=== PATIENT | male | born 1965 | race Caucasian/White ===

== ENCOUNTER 2020-10-27 09:27 | Day surgery (SDC) | payer MEDICAID ==
[2020-10-22 15:34] LABS: BASOPHILS # (AUTO) 0.1 X10'3 (0-0.2); BASOPHILS % (AUTO) 0.8 % (0-1); EOSINOPHILS # (AUTO) 0.1 X10'3 (0-0.9); EOSINOPHILS % (AUTO) 1.7 % (0-6); HEMATOCRIT 39.2 % (42.0-52.0); HEMOGLOBIN 13.2 g/dl (14.0-17.9); LYMPHOCYTES # (AUTO) 1.8 X10'3 (1.1-4.8); LYMPHOCYTES % (AUTO) 22.7 % (21-51); MEAN CORPUSCULAR HEMOGLOBIN 30.3 PG (27.0-31.0); MEAN CORPUSCULAR HGB CONC 33.8 g/dL (33.0-36.5); MEAN CORPUSCULAR VOLUME 89.7 FL (78-98); MEAN PLATELET VOLUME 9.9 FL (7.4-10.4); MONOCYTES # (AUTO) 0.7 X10'3 (0-0.9); MONOCYTES % (AUTO) 8.8 % (2-12); NEUTROPHILS # (AUTO) 5.4 X10'3 (1.8-7.7); PLATELET COUNT 191 X10'3 (140-440); RED BLOOD COUNT 4.37 X10'6 (4.70-6.10); WHITE BLOOD COUNT 8.1 X10'3 (4.5-11.0)
[2020-10-22 15:59] LABS: ALANINE AMINOTRANSFERASE 46 U/L (12-78); ALBUMIN 3.4 G/DL (3.4-5.0); ALBUMIN/GLOBULIN RATIO 0.9 (1.1-1.5); ALKALINE PHOSPHATASE 113 IU/L (46-116); ANION GAP 11 (8-16); ASPARTATE AMINO TRANSFERASE 23 U/L (10-37); BILIRUBIN,TOTAL 0.4 MG/DL (0.1-1.0); BLOOD UREA NITROGEN 21 MG/DL (7-18); BUN/CREATININE RATIO 16.2 (5.4-32.0); CALCIUM 8.8 MG/DL (8.5-10.1); CHLORIDE 104 MMOL/L (99-107); GLUCOSE 162 MG/DL (70-104); POTASSIUM 4.1 MMOL/L (3.5-5.1); SODIUM 139 MMOL/L (135-145); TOTAL CARBON DIOXIDE 24.5 MMOL/L (24-32); TOTAL PROTEIN 7.2 G/DL (6.4-8.2); eGFR 57 ML/MIN
[~2020-10-27] VITALS: Ht 185.4 cm; Wt 133.5 kg
[2020-10-27] VITALS (11 sets, daily range): BP systolic 122–154; BP diastolic 66–93
[2020-10-27] MEDS ORDERED: methylPREDNISolone sod succ 125mg/2ml vial IV ONE (09:50)
[2020-10-27] MEDS ORDERED: diphenhydrAMINE 25mg capsule PO PRN (09:50)
[2020-10-27] MEDS ORDERED: normal saline 1,000 ML IV SCH (09:50)
[2020-10-27] MEDS ORDERED: LORazepam 0.5 MG tablet PO PRN (09:50)
[2020-10-27] MEDS ORDERED: nitroGLYCERIN 0.4mg SUBLingual tab SL PRN ×2 (09:50→11:55)
[2020-10-27] MEDS ORDERED: METF-438 PO (09:54)
[2020-10-27] MEDS ORDERED: PIOG45TA65 PO (09:54)
[2020-10-27] MEDS ORDERED: LISI-600 PO (09:54)
[2020-10-27] MEDS ORDERED: LIRA0.6P (09:54)
[2020-10-27] MEDS ORDERED: PRAV80TA3 PO (09:54)
[2020-10-27] MEDS ORDERED: HYDR25TA4 PO (09:54)
[2020-10-27] MEDS ORDERED: AMLO5TAB16 PO (09:54)
[2020-10-27] MEDS ORDERED: CETI10TA14 PO (09:54)
[2020-10-27] MEDS ORDERED: KEN0.1O TOP (09:54)
[2020-10-27] MEDS ORDERED: PREG300C19 PO (09:54)
[2020-10-27] MEDS ORDERED: GLYB5TAB7 PO (09:54)
[2020-10-27] MEDS ORDERED: PRED20TA PO (09:54)
[2020-10-27] MEDS ORDERED: OMEG1CAP46 PO (09:58)
[2020-10-27] MEDS ORDERED: KORE1000 (09:58)
[2020-10-27] MEDS ORDERED: ASPI-611 PO (09:58)
[2020-10-27] MEDS ORDERED: MULT-1085 PO (09:58)
[2020-10-27] MEDS ORDERED: THIO200T PO (09:58)
[2020-10-27 10:10] LABS: PARTIAL THROMBOPLASTIN TIME 27 SECONDS (22-32)
[2020-10-27] MEDS ORDERED: midazolam 2 mg/2 ml injection ONE (10:19)
[2020-10-27] MEDS ORDERED: iohexol 350 MG/ML 50ML vial IV ONE (10:19)
[2020-10-27] MEDS ORDERED: LIDOcaine 1% (10mg/ml)w/preservative injection 20ml MDV ONE (10:19)
[2020-10-27] MEDS ORDERED: fentaNYL/PF 50MCG/1 ML 2ML syringe ONE (10:19)
[2020-10-27] MEDS ORDERED: iohexol 350MG/ML 100ml bottle IV ONE (10:19)
[2020-10-27] MEDS ORDERED: FLU VACC QS2020-21(6MOS UP)/PF 60 MCG/0.5 ML SYRINGE IMVAC ONE (10:25)
[2020-10-27] MEDS ORDERED: OXAZEpam 15mg capsule PO PRN (11:55)
[2020-10-27] MEDS ORDERED: ondansetron/PF 4mg/2ml inj IV PRN (11:55)
[2020-10-27] MEDS ORDERED: HYDROcodone/acetaminophen 5mg/325mg tablet PO PRN (11:55)
[2020-10-27] MEDS ORDERED: proCHLORperazine 10 MG/2 ml inj IV PRN (11:55)
[2020-10-27] MEDS ORDERED: HYDROcodone/acetaminophen 10/325mg tab PO PRN (11:55)
== END 2020-10-27 17:00 | disposition home or self-care (01) ==
LOC: SSTAY O 09:27
PROVIDERS: ATTEND Internal Medicine Cardiovascular Disease
DX: R94.39 Abnormal result of other cardiovascular function study (principal); I25.10 Atherosclerotic heart disease of native coronary artery without angina pectoris; E11.40 Type 2 diabetes mellitus with diabetic neuropathy, unspecified; I10 Essential (primary) hypertension; J44.9 Chronic obstructive pulmonary disease, unspecified; F32.9 Major depressive disorder, single episode, unspecified; E66.9 Obesity, unspecified; Z68.38 Body mass index [BMI] 38.0-38.9, adult; Z79.01 Long term (current) use of anticoagulants; Z79.899 Other long term (current) drug therapy; Z89.432 Acquired absence of left foot; Z88.8 Allergy status to other drugs, medicaments and biological substances; Z87.891 Personal history of nicotine dependence
CPT/HCPCS: 36415; 71046; 80053; 82948; 85025; 85610; 85730; 93005; 93458; 99152; 99153; C1760; C1769; J1644; J2001; J2250; J2930; J3010; J7030; Q0163; Q9967; A4620; A6258

== ENCOUNTER 2021-05-05 05:28 | Day surgery (SDC) | payer MEDICARE, MEDICAID ==
[2021-04-27 15:43] LABS: BASOPHILS % (AUTO) 0.6 % (0-1); EOSINOPHILS # (AUTO) 0.2 X10'3 (0-0.9); LYMPHOCYTES # (AUTO) 1.9 X10'3 (1.1-4.8); LYMPHOCYTES % (AUTO) 23.8 % (21-51); MEAN CORPUSCULAR HGB CONC 33.6 g/dL (33.0-36.5); MEAN CORPUSCULAR VOLUME 89.2 FL (78-98); MEAN PLATELET VOLUME 10.2 FL (7.4-10.4); MONOCYTES # (AUTO) 0.7 X10'3 (0-0.9); MONOCYTES % (AUTO) 8.9 % (2-12); NEUTROPHILS # (AUTO) 5.1 X10'3 (1.8-7.7); NEUTROPHILS % (AUTO) 63.7 % (42-75); PRE OP HEMATOCRIT 37.6 % (42.0-52.0); PRE OP HEMOGLOBIN 12.6 g/dL (14.0-17.9); PRE OP PLATELET COUNT 193 X10'3 (140-440); RED BLOOD COUNT 4.22 X10'6 (4.70-6.10); RED CELL DISTRIBUTION WIDTH 15.8 % (11.5-14.5)
[2021-04-27 15:53] LABS: BLOOD UREA NITROGEN 20 MG/DL (7-18); BUN/CREATININE RATIO 14.5 (5.4-32.0); CALCIUM 9.2 MG/DL (8.5-10.1); CHLORIDE 104 MMOL/L (99-107); CREATININE 1.38 MG/DL (0.60-1.10); PRE OP ANION GAP 9 (8-16); PRE OP GLUCOSE 175 MG/DL (70-104); PRE OP SODIUM 139 MMOL/L (135-145); TOTAL CARBON DIOXIDE 25.8 MMOL/L (24-32); eGFR 53 ML/MIN
[2021-04-27 15:54] LABS: ALBUMIN 3.5 G/DL (3.4-5.0); ALBUMIN/GLOBULIN RATIO 0.9 (1.1-1.5); ALKALINE PHOSPHATASE 97 IU/L (46-116); PRE OP ALT 59 U/L (30-65); PRE OP AST 39 U/L (10-37); PRE OP BILIRUB, TOTAL 0.4 MG/DL (0.0-1.0); TOTAL PROTEIN 7.2 G/DL (6.4-8.2)
[~2021-05-05] VITALS: Ht 185.4 cm; Wt 136.5 kg
[2021-05-05] VITALS (10 sets, daily range): BP systolic 144–161; BP diastolic 81–97
[~2021-05-05 05:28] MED LIST: ACET-812 PO; ALPHA LIPOIC ACID; AMLO5TAB16 PO; ASPI-611 PO; CETI10TA14 PO; GLYB5TAB7 PO; HYDR25TA4 PO; LIRA0.6P SQ; LISI20TA28 PO; METF-438 PO; MULT-1085 PO; OMEG1CAP46 PO; PIOG45TA65 PO; PRAV80TA3 PO; PREG300C19 PO; THIO200T PO; VITAMIN C; ringers solution, lacted 1,000 ML IV SCH
[2021-05-05] MEDS ORDERED: vancomycin 1,500 MG in NS 300ml IV soln IV ONE (05:30)
[2021-05-05] MEDS ORDERED: ceFAZolin inj. 3,000 MG in normal saline 100ml IV soln 100 ML IV ONE (05:30)
[2021-05-05] MEDS ORDERED: famotidine 20mg tablet PO ONE (05:30)
[2021-05-05] MEDS ORDERED: BUPIVAcaine/PF 2.5 mg/ml (0.25%) 30ml vial ONE ×3 (07:01→08:39)
[2021-05-05] MEDS ORDERED: methylPREDNISolone sod succ 125mg/2ml vial ONE ×3 (07:01→08:39)
[2021-05-05] MEDS ORDERED: proCHLORperazine 10 MG/2 ml inj IV PRN (07:15)
[2021-05-05] MEDS ORDERED: meperidine/PF 25mg/ml syringe IV PRN ×3 (07:15)
[2021-05-05] MEDS ORDERED: ringers solution, lacted 1,000 ML IV SCH (07:15)
[2021-05-05] MEDS ORDERED: ondansetron/PF 4mg/2ml inj IV PRN (07:15)
[2021-05-05] MEDS ORDERED: morphine 4 MG/ML inj SYRINge IV PRN (07:15)
[2021-05-05] MEDS ORDERED: hydrALAZINE 20mg/ml inj. IV PRN (07:15)
[2021-05-05] MEDS ORDERED: morphine 2 MG/ML inj. syringe IV PRN (07:15)
[2021-05-05] MEDS ORDERED: labetalol 20mg/4ml (5mg/ml) syringe IV PRN (07:15)
[2021-05-05] MEDS ORDERED: acetaminophen 1,000mg/100ml IV 100 ML IV PRN (07:15)
[2021-05-05] MEDS ORDERED: sevoflurane 250ml liquid IH ONE (07:15)
[2021-05-05] MEDS ORDERED: fentaNYL/PF 50MCG/1 ML 2ML syringe ONE (07:23)
[2021-05-05] MEDS ORDERED: midazolam 1 mg/ML 2ml injection ONE (07:33)
[2021-05-05] MEDS ORDERED: propofol inj 20 ML IV ONE ×2 (07:34)
[2021-05-05] MEDS ORDERED: ondansetron/PF 4mg/2ml inj ONE (07:34)
[2021-05-05] MEDS ORDERED: LIDOcaine 2% (20mg/ml) 5ml vial ONE (07:34)
[2021-05-05] MEDS ORDERED: dexamethasone sod phosphate 4mg/ml inj. ONE (07:35)
[2021-05-05] MEDS ORDERED: 0.9 % SODIUM CHLORIDE 10 ML VIAL ONE (07:55)
[2021-05-05] MEDS ORDERED: ePHEDrine 50MG/ML INJ. ONE (07:55)
[2021-05-05] MEDS ORDERED: morphine 4 MG/ML inj SYRINge ONE (08:48)
[2021-05-05] MEDS ORDERED: ketorolac trometh. 30mg/ml inj. ONE (08:49)
--- NOTE | 2021-05-05 09:00 | NUR ---
Received from OR via , accompanied by Anesthesiologist and report given by Anesthesiolgist. PATIENT WAKING UP, DENIES PAIN, V/S STABLE, SCD ON, 20G LUE, BRACE TO RIGHT ARM LOCKED AT 60 DEGREES WITH SPLINT DRESSING TO ELBOW AND WRIST CDI.
--- NOTE | 2021-05-05 10:30 | NUR ---
PATIENT A&OX4, DENIES PAIN, V/S STABLE, SCD OFF, 20G LUE D/C, BRACE TO RIGHT ARM LOCKED AT 60 DEGREES WITH SPLINT DRESSING TO ELBOW AND WRIST WHICH WAS REINFORCED PER DR BROWN AT THE ELBOW DUE TO SOME MILD DRAINAGE. I HAVE REVIEWED D/C INSTRUCTIONS WITH PATIENT AND HE HAS VERBALIZED UNDERSTANDING. BG 181 DR JOHNATHAN JIN WITH D/C HOME. PATIENT D/C HOME WITH ALL BELONGINGS AND GAVE TRANSPORT HOME.
== END 2021-05-05 10:30 | disposition home or self-care (01) ==
LOC: PAS 05:28
PROVIDERS: ATTEND Orthopaedic Surgery
DX: G56.01 Carpal tunnel syndrome, right upper limb (principal); G56.21 Lesion of ulnar nerve, right upper limb; G89.4 Chronic pain syndrome; F41.9 Anxiety disorder, unspecified; I10 Essential (primary) hypertension; E78.5 Hyperlipidemia, unspecified; M19.011 Primary osteoarthritis, right shoulder; M19.012 Primary osteoarthritis, left shoulder; E11.59 Type 2 diabetes mellitus with other circulatory complications; E11.42 Type 2 diabetes mellitus with diabetic polyneuropathy; E66.01 Morbid (severe) obesity due to excess calories; Z68.41 Body mass index [BMI] 40.0-44.9, adult; G47.33 Obstructive sleep apnea (adult) (pediatric); F17.299 Nicotine dependence, other tobacco product, with unspecified nicotine-induced disorders; Z79.899 Other long term (current) drug therapy; Z98.890 Other specified postprocedural states; Z79.84 Long term (current) use of oral hypoglycemic drugs; Z88.8 Allergy status to other drugs, medicaments and biological substances; Z80.9 Family history of malignant neoplasm, unspecified
CPT/HCPCS: 36415; 64718; 64719; 64721; 80053; 82948; 85025; 93005; J0690; J1100; J1885; J2001; J2250; J2270; J2405; J2704; J2930; J3010; J3370; J3490; J7040; Z7506; Z7508; Z7512; A4215; A4565; A4618; A6250; A6455; A7000; J7120

== ENCOUNTER 2022-11-20 06:56 | Day surgery (SDC) | payer MEDICARE, MEDICAID ==
[2022-11-16 15:41] LABS: BASOPHILS # (AUTO) 0.1 X10'3 (0-0.2); BASOPHILS % (AUTO) 0.6 % (0-1); EOSINOPHILS # (AUTO) 0.1 X10'3 (0-0.9); EOSINOPHILS % (AUTO) 1.1 % (0-6); LYMPHOCYTES # (AUTO) 2.1 X10'3 (1.1-4.8); LYMPHOCYTES % (AUTO) 20.8 % (21-51); MEAN CORPUSCULAR HEMOGLOBIN 29.4 PG (27.0-31.0); MEAN CORPUSCULAR VOLUME 86.3 FL (78-98); MEAN PLATELET VOLUME 10.4 FL (7.4-10.4); MONOCYTES # (AUTO) 0.8 X10'3 (0-0.9); MONOCYTES % (AUTO) 8.1 % (2-12); NEUTROPHILS # (AUTO) 6.9 X10'3 (1.8-7.7); NEUTROPHILS % (AUTO) 69.4 % (42-75); PRE OP HEMATOCRIT 39.6 % (42.0-52.0); PRE OP HEMOGLOBIN 13.5 g/dL (14.0-17.9); PRE OP PLATELET COUNT 211 X10'3 (140-440); RED BLOOD COUNT 4.59 X10'6 (4.70-6.10); RED CELL DISTRIBUTION WIDTH 15.1 % (11.5-14.5)
[2022-11-16 15:56] LABS: ALBUMIN 3.7 G/DL (3.4-5.0); ALBUMIN/GLOBULIN RATIO 1.1 (1.1-1.5); ALKALINE PHOSPHATASE 86 IU/L (46-116); BLOOD UREA NITROGEN 18 MG/DL (7-18); BUN/CREATININE RATIO 9.1 (5.4-32.0); CALCIUM 9.6 MG/DL (8.5-10.1); CHLORIDE 103 MMOL/L (99-107); CREATININE 1.97 MG/DL (0.60-1.10); PRE OP ALT 49 U/L (30-65); PRE OP ANION GAP 11 (8-16); PRE OP AST 40 U/L (10-37); PRE OP BILIRUB, TOTAL 0.7 MG/DL (0.0-1.0); PRE OP POTASSIUM 3.7 MMOL/L (3.4-5.1); PRE OP SODIUM 139 MMOL/L (135-145); TOTAL CARBON DIOXIDE 24.8 MMOL/L (24-32); TOTAL PROTEIN 7.1 G/DL (6.4-8.2); eGFR 35 ML/MIN
[2022-11-16 16:02] LABS: PRE OP GLUCOSE 213 MG/DL (70-104)
[~2022-11-20] VITALS: Ht 182.9 cm; Wt 120.2 kg
[~2022-11-20 06:56] MED LIST changes: -ACET-812 PO; -ALPHA LIPOIC ACID; +BUPIVAcaine 0.5% inj/PF 30 ML ONE; +CHOL400T57 PO; +FENO48TA15 PO; -GLYB5TAB7 PO; +LANTUS SQ; +ceFAZolin inj. 3,000 MG in normal saline 100ml IV soln 100 ML IV ONE; +famotidine 20mg tablet PO ONE
[2022-11-20 07:20] VITALS: BP 138/80
[2022-11-20] MEDS ORDERED: morphine 2 MG/ML inj. syringe IV PRN (09:20)
[2022-11-20] MEDS ORDERED: morphine 4 MG/ML inj SYRINge IV PRN (09:20)
[2022-11-20] MEDS ORDERED: ringers solution, lacted 1,000 ML IV SCH (09:20)
[2022-11-20] MEDS ORDERED: ondansetron/PF 4mg/2ml inj IV PRN (09:20)
[2022-11-20] MEDS ORDERED: meperidine/PF 25mg/ml syringe IV PRN ×3 (09:20)
[2022-11-20] MEDS ORDERED: proCHLORperazine 10 MG/2 ml inj IV PRN (09:20)
[2022-11-20] MEDS ORDERED: LIDOcaine 0.5% (5mg/ml) 50ml vial ONE (09:24)
[2022-11-20] MEDS ORDERED: fentaNYL/PF 50MCG/1 ML 2ML syringe ONE (09:28)
[2022-11-20] MEDS ORDERED: midazolam 1 mg/ML 2ml injection ONE (09:28)
[2022-11-20] MEDS ORDERED: BUPIVAcaine 0.5% inj/PF 30 ml vial IJ ONE (09:45)
[2022-11-20 10:20] VITALS: BP 139/79
[2022-11-20 10:30] VITALS: BP 135/68
--- NOTE | 2022-11-20 10:37 | NUR ---
Received from OR via [facility], accompanied by Anesthesiologist KYA and report given by Anesthesiolgist. PT ARRIVES AAOX4, NO COMPLAINT, NO PAIN, ON RA 97%SPO2. R ARM DRESSING CLEAN DRY AND INTACT, ABLE TO MOVE R FINGERS WITHOUT PROBLEMS. Addendum: 11/20/22 at 1043 by Rojelio Gilmore RN Amended: Links added.
[2022-11-20 10:40] VITALS: BP 124/69
[2022-11-20 10:50] VITALS: BP 130/70
--- NOTE | 2022-11-20 10:50 | NUR ---
PT DISCHARGED INTO CARE OF OTHER. AAOX4, NO COMPLAINTS, AMBULATORY WITH STEADY NARROW GAIT. PT VERBALIZED UNDERSTANDING OF DC PAPERWORK, FOLLOW UP PLAN OF CARE. AND HOME WITHOUT INCIDENT. Addendum: 11/20/22 at 1113 by Rojelio Gilmore RN Amended: Links added.
== END 2022-11-20 10:50 | disposition home or self-care (01) ==
LOC: PAS 06:56
PROVIDERS: ATTEND Orthopaedic Surgery Hand Surgery
DX: G56.21 Lesion of ulnar nerve, right upper limb (principal); E11.42 Type 2 diabetes mellitus with diabetic polyneuropathy; F41.9 Anxiety disorder, unspecified; E78.5 Hyperlipidemia, unspecified; I10 Essential (primary) hypertension; E66.01 Morbid (severe) obesity due to excess calories; Z68.35 Body mass index [BMI] 35.0-35.9, adult; M19.012 Primary osteoarthritis, left shoulder; M19.011 Primary osteoarthritis, right shoulder; E11.59 Type 2 diabetes mellitus with other circulatory complications; G47.30 Sleep apnea, unspecified; Z98.890 Other specified postprocedural states; Z98.1 Arthrodesis status; Z72.89 Other problems related to lifestyle; Z88.8 Allergy status to other drugs, medicaments and biological substances; Z79.899 Other long term (current) drug therapy; Z79.4 Long term (current) use of insulin; Z87.891 Personal history of nicotine dependence
CPT/HCPCS: 36415; 64718; 80053; 82948; 85025; 93005; J0690; J2250; J3010; J3490; J7030; J7120; S0020; Z7506; Z7512; A4215; A6449